=== PATIENT | female | born 1935 | race African-American/Black ===

== ENCOUNTER 2017-08-06 20:10 | Inpatient (IN) | payer MEDICARE, MEDICAID ==
[~2017-08-06] VITALS: Ht 170.2 cm; Wt 100.3 kg
[~2017-08-06 20:10] MED LIST: ACET650S25 GT; AMLO10TA80 GT; ASPI-1160 GT; BENZ1TAB7 GT; CLON0.1T GT; CRAN500T PO; DOCU50LI25 GT; FAMO20TA8 GT; FOLI-43 GT; HYDR-4135 GT; INSU100C3 SQ; IPRA3AMP9 IH; ISOS30TA6 GT; LACT10SO GT; LEVO150T8 GT; METO100T16 PO; MULT-1146 GT; OCD GT; OLAN5TAB3 GT; SERT50TA PO; TRAM50TA94 PO; ZYDS20 PO; oscal GT; renavite GT
[2017-08-06] MEDS ORDERED: IPRATROPIUM BROMIDE (0.02%) 0.5MG/2.5ML NEB HHN STA (20:20)
[2017-08-06] MEDS ORDERED: METHYLPREDNISOLONE SOD SUCC 125 MG/2 ML VIAL IV STA (20:20)
[2017-08-06] MEDS ORDERED: ALBUTEROL (0.083%) 2.5MG/3ML NEB HHN STA (20:20)
[2017-08-06] MEDS ORDERED: LEVOFLOXACIN 750MG PREMIX 150 ML IV ONE (20:30)
[2017-08-06] MEDS ORDERED: NITROGLYCERIN OINT 1GM/INCH UDPKT TD ONE (20:30)
[2017-08-06] MEDS ORDERED: ASPIRIN 81MG TABLET PO ONE (20:30)
[2017-08-06] MEDS ORDERED: METHYLPREDNISOLONE SOD SUCC 125 MG/2 ML VIAL IV SCH (20:30)
[2017-08-06] MEDS ORDERED: MAGNESIUM 2 G PREMIX 50 ML IV ONE (20:30)
[2017-08-06 20:48] LABS: BG BASE EXCESS -5.6 mmol/L (-2.0-2.0); BG BILEVEL POS AIRWAY PRESSURE 18/5; BG CARBOXYHEMOGLOBIN 0.2 % (0.5-1.5); BG DEOXYHEMOGLOBIN 0.6 % (0.0-5.0); BG FRACTION INSPIRED OXYGEN 100; BG HCO3 ACT 21.2 mmol/L (22.0-26.0); BG METHEMOGLOBIN 0.3 % (0.0-1.5); BG OXYGEN SATURATION 99.4 % (92.0-98.5); BG OXYHEMOGLOBIN 98.9 % (94.0-97.0); BG PCO2 47.7 mmHg (35.0-45.0); BG PH 7.266 (7.350-7.450); BG PO2 234.5 mmHg (75.0-100.0); BG SAMPLE SITE RIGHT RADIAL; BG TOTAL HEMOGLOBIN 9.7 g/dL (12.0-18.0); BG VENT MODE MASK - BIPAP
[2017-08-06 21:11] LABS: CHLORIDE 76 mEq/L (98-107)
[2017-08-06 21:14] LABS: HEMATOCRIT. 23.9 % (36.0-48.0); HEMOGLOBIN. 8.1 g/dL (12.0-16.0); INR 1.1; MEAN CORPUSCULAR HEMOGLOBIN 29.8 pg (28.0-32.0); MEAN PLATELET VOLUME 7.3 fl (7.4-10.4); PLATELET 327 x1000/uL (130-400); PROTHROMBIN TIME 11.7 sec (9.4-11.6); RED BLOOD CELL COUNT 2.72 mill/uL (4.2-5.4); RED CELL DISTRIBUTION WIDTH 16.9 % (11.6-14.6)
[2017-08-06 21:16] LABS: ETHANOL BLOOD < 10 mg/dL
[2017-08-06 21:49] LABS: PLATELET ESTIMATE NORMAL
[2017-08-06] MEDS ORDERED: PIPERACILLIN/TAZ 3.375G PREMIX 50 ML IV SCH ×2 (22:00→23:00)
[2017-08-06 22:02] LABS: CLARITY URINE CLEAR (CLEAR); COLOR URINE YELLOW (YELLOW); KETONES URINE NEGATIVE (NEGATIVE); LEUKOCYTE ESTERASE URINE 2+ (NEGATIVE); NITRITE URINE NEGATIVE (NEGATIVE); OCCULT BLOOD URINE TRACE (NEGATIVE); PH URINE 5.5 (4.5-8.0); PROTEIN URINE 4+ (NEGATIVE); SPECIFIC GRAVITY URINE 1.017 (1.005-1.030); UROBILINOGEN URINE 0.2 E.U./dL (0.2-1.0)
[2017-08-06 22:30] LABS: *AMPHETAMINES SCREEN URINE NEGATIVE (NEGATIVE); *BARBITURATES SCREEN URINE NEGATIVE (NEGATIVE); *BENZODIAZEPINES SCREEN URINE NEGATIVE (NEGATIVE); *COCAINE SCREEN URINE NEGATIVE (NEGATIVE); CANNABINOID URINE SCREEN NEGATIVE (NEGATIVE); METHADONE URINE SCREEN NEGATIVE (NEGATIVE); OPIATES URINE SCREEN NEGATIVE (NEGATIVE); PHENCYCLIDINE URINE SCREEN NEGATIVE (NEGATIVE)
[2017-08-06] MEDS ORDERED: SODIUM CHLORIDE 0.9% 1,000 ML IV SCH (23:00)
[2017-08-07] VITALS (12 sets, daily range): BP systolic 85–130; BP diastolic 33–53
[2017-08-07 00:33] LABS: T4 FREE 0.96 ng/dL (0.76-1.46)
[2017-08-07] MEDS ORDERED: TRAMADOL 50MG TABLET PO PRN (01:30)
[2017-08-07] MEDS ORDERED: NITROGLYCERIN 0.4MG TABLET SL SL PRN (01:30)
[2017-08-07] MEDS ORDERED: ZOLPIDEM TARTRATE 5MG TABLET PO PRN (01:31)
[2017-08-07] MEDS ORDERED: MAGNESIUM/ALUMINUM HYDROXIDE/SIMETHICONE 30ML UDC PO PRN (01:31)
[2017-08-07] MEDS ORDERED: ACETAMINOPHEN 325MG TABLET PO PRN (01:31)
[2017-08-07] MEDS ORDERED: ONDANSETRON HCL 4MG/2ML VIAL IV PRN (01:31)
[2017-08-07] MEDS ORDERED: CLONIDINE 0.1MG TABLET PO PRN (01:31)
[2017-08-07] MEDS ORDERED: IPRATROPIUM/ALBUTEROL 0.5-3(2.5)MG/3ML NEB INH PRN (01:32)
[2017-08-07] MEDS ORDERED: DOCUSATE SODIUM 100MG CAPSULE PO PRN (01:32)
[2017-08-07] MEDS ORDERED: NA PHOS,M-B/NA PHOS,DI-BA ENEMA 118ML PR PRN (01:32)
[2017-08-07] MEDS ORDERED: DIPHENHYDRAMINE 50MG/ML VIAL IV PRN (01:32)
[2017-08-07] MEDS ORDERED: GUAIFENESIN 200MG/10ML SUGAR FREE UDC PO PRN (01:33)
[2017-08-07] MEDS ORDERED: DEXTROSE 50% WATER 50ML SYRINGE IV PRN (01:36)
[2017-08-07] MEDS ORDERED: ATROPINE SULFATE 1MG/ML VIAL IV PRN (01:36)
[2017-08-07] MEDS ORDERED: VANCOMYCIN 1 G PREMIX 200 ML IV SCH (03:00)
[2017-08-07 03:20] LABS: FOLIC ACID (FOLATE) SERUM >20 ng/mL ng/mL (>5.38)
[2017-08-07] MEDS: PIPERACILLIN/TAZ 2.25G PREMIX 50 ML IV SCH ×3 (03:23→19:03)
[2017-08-07 03:33] LABS: VITAMIN B12 SERUM 1485 pg/mL (211-911)
[2017-08-07] MEDS: IPRATROPIUM/ALBUTEROL 0.5-3(2.5)MG/3ML NEB HHN SCH ×5 (04:24→21:10)
[2017-08-07] MEDS: METHYLPREDNISOLONE SOD SUCC 125 MG/2 ML VIAL IV SCH ×3 (05:35→21:51)
[2017-08-07] MEDS: BLOOD SUGAR DIAGNOSTIC STRIP TEST SCH ×4 (05:35→23:16)
[2017-08-07] MEDS: INSULIN LISPRO 100 UNITS/ML SUBCUT SCH ×4 (05:38→23:18)
[2017-08-07] MEDS ORDERED: BLOOD SUGAR DIAGNOSTIC STRIP TEST SCH (07:30)
[2017-08-07] MEDS ORDERED: INSULIN LISPRO 100 UNITS/ML SUBCUT SCH (08:00)
[2017-08-07] MEDS ORDERED: ENOXAPARIN 30MG/0.3ML SYR SUBCUT SCH ×2 (09:00)
[2017-08-07] MEDS ORDERED: ENOXAPARIN 40MG/0.4ML SYR SUBCUT SCH (09:00)
[2017-08-07] MEDS: PANTOPRAZOLE SODIUM 40 MG/VIAL IV SCH (09:40)
[2017-08-07] MEDS: ASPIRIN 325MG EC TABLET PO SCH (09:40)
[2017-08-07] MEDS ORDERED: LEVOTHYROXINE SODIUM 200MCG TABLET GT SCH (10:00)
[2017-08-07 10:19] LABS: HEMATOCRIT. 24.7 % (36.0-48.0); HEMOGLOBIN. 8.5 g/dL (12.0-16.0); MEAN CORPUSCULAR HEMOGLOBIN 30.1 pg (28.0-32.0); MEAN PLATELET VOLUME 7.5 fl (7.4-10.4); PLATELET 284 x1000/uL (130-400); RED BLOOD CELL COUNT 2.81 mill/uL (4.2-5.4); RED CELL DISTRIBUTION WIDTH 17.2 % (11.6-14.6)
[2017-08-07 10:49] LABS: PLATELET ESTIMATE NORMAL
[2017-08-07 11:09] LABS: SODIUM URINE RANDOM 30 mEq/L
[2017-08-07] MEDS ORDERED: LEVOTHYROXINE SODIUM 100 MCG/ VIAL IV NR (12:00)
[2017-08-07 14:28] LABS: BG BASE EXCESS -8.2 mmol/L (-2.0-2.0); BG CARBOXYHEMOGLOBIN 0.3 % (0.5-1.5); BG DEOXYHEMOGLOBIN 10.8 % (0.0-5.0); BG FRACTION INSPIRED OXYGEN 28; BG HCO3 ACT 17.9 mmol/L (22.0-26.0); BG METHEMOGLOBIN 0.3 % (0.0-1.5); BG OXYGEN SATURATION 89.1 % (92.0-98.5); BG OXYHEMOGLOBIN 88.6 % (94.0-97.0); BG PCO2 38.7 mmHg (35.0-45.0); BG PH 7.282 (7.350-7.450); BG PO2 55.8 mmHg (75.0-100.0); BG SAMPLE SITE RIGHT RADIAL; BG TOTAL HEMOGLOBIN 8.9 g/dL (12.0-18.0); BG VENT MODE NASAL CANNULA
[2017-08-07] MEDS ORDERED: SODIUM CHLORIDE 3% 500ML IV SOLN IV ONE (14:45)
[2017-08-07] MEDS ORDERED: SODIUM CHLORIDE 3% 500 ML IV ONE (16:00)
[2017-08-07] MEDS ORDERED: VANCOMYCIN 1 G PREMIX 200 ML IV NR (16:00)
[2017-08-07] MEDS: PIPERACILLIN/TAZ 3.375G PREMIX 50 ML IV SCH (20:16)
[2017-08-07] MEDS ORDERED: SODIUM POLYSTYRENE SULFONATE 15 G/60 ML BOT PO SCH (22:15)
[2017-08-07] MEDS ORDERED: SODIUM CHLORIDE 3% 500ML IV SOLN IV SCH (22:15)
[2017-08-08] VITALS (12 sets, daily range): BP systolic 85–140; BP diastolic 30–67
[2017-08-08] MEDS: IPRATROPIUM/ALBUTEROL 0.5-3(2.5)MG/3ML NEB HHN SCH ×5 (00:13→20:24)
[2017-08-08] MEDS: PIPERACILLIN/TAZ 3.375G PREMIX 50 ML IV SCH ×3 (03:06→20:23)
[2017-08-08] MEDS: METHYLPREDNISOLONE SOD SUCC 125 MG/2 ML VIAL IV SCH ×3 (05:30→21:01)
[2017-08-08] MEDS: INSULIN LISPRO 100 UNITS/ML SUBCUT SCH ×4 (05:36→23:03)
[2017-08-08] MEDS: BLOOD SUGAR DIAGNOSTIC STRIP TEST SCH ×4 (06:00→23:01)
[2017-08-08 06:30] LABS: HEMATOCRIT. 23.6 % (36.0-48.0); HEMOGLOBIN. 8.2 g/dL (12.0-16.0); MEAN CORPUSCULAR HEMOGLOBIN 30.7 pg (28.0-32.0); MEAN CORPUSCULAR VOLUME 88.3 fL (81.0-99.0); MEAN PLATELET VOLUME 7.8 fl (7.4-10.4); PLATELET 270 x1000/uL (130-400); RED BLOOD CELL COUNT 2.67 mill/uL (4.2-5.4)
[2017-08-08 07:06] LABS: PHOSPHORUS 4.6 mg/dL (2.5-4.9)
[2017-08-08] MEDS: PANTOPRAZOLE SODIUM 40 MG/VIAL IV SCH (08:55)
[2017-08-08] MEDS: ASPIRIN 325MG EC TABLET PO SCH (08:56)
[2017-08-08] MEDS: LEVOTHYROXINE SODIUM 200MCG TABLET GT SCH (08:56)
[2017-08-08] MEDS ORDERED: ENOXAPARIN 40MG/0.4ML SYR SUBCUT SCH (09:00)
[2017-08-08] MEDS ORDERED: SODIUM CHLORIDE 3% 500ML IV SOLN IV ONE (09:15)
[2017-08-08] MEDS ORDERED: SODIUM CHLORIDE 0.9% 1000ML BAG (SEPSIS BOLUS) IV ONE (09:30)
[2017-08-08] MEDS ORDERED: SODIUM CHLORIDE 0.9% 1,000 ML IV SCH (09:45)
[2017-08-08 09:50] LABS: PLATELET ESTIMATE NORMAL
[2017-08-08] MEDS ORDERED: SODIUM CHLORIDE 3% 500 ML IV NR (10:00)
[2017-08-08] MEDS: CITRIC ACID/SODIUM CITRATE SOLN 30ML UDC GT SCH ×3 (10:06→17:44)
[2017-08-08] MEDS: SODIUM CHLORIDE 0.9% 1,000 ML IV SCH (16:12)
[2017-08-09] VITALS: BP 90/40
[2017-08-09] MEDS: IPRATROPIUM/ALBUTEROL 0.5-3(2.5)MG/3ML NEB HHN SCH ×4 (00:42→12:28)
[2017-08-09 02:00] VITALS: BP 79/31
[2017-08-09] MEDS: SODIUM CHLORIDE 0.9% 1,000 ML IV SCH ×2 (03:44→12:41)
[2017-08-09] MEDS: PIPERACILLIN/TAZ 3.375G PREMIX 50 ML IV SCH (03:47)
[2017-08-09 04:00] VITALS: BP 82/38
[2017-08-09] MEDS: METHYLPREDNISOLONE SOD SUCC 125 MG/2 ML VIAL IV SCH (05:37)
[2017-08-09 06:00] VITALS: BP 71/23
[2017-08-09] MEDS: BLOOD SUGAR DIAGNOSTIC STRIP TEST SCH ×2 (06:00→12:08)
[2017-08-09 06:26] LABS: HEMATOCRIT. 23.8 % (36.0-48.0); HEMOGLOBIN. 7.8 g/dL (12.0-16.0); MEAN CORPUSCULAR HEMOGLOBIN 30.1 pg (28.0-32.0); MEAN CORPUSCULAR VOLUME 91.9 fL (81.0-99.0); MEAN PLATELET VOLUME 7.7 fl (7.4-10.4); PLATELET 289 x1000/uL (130-400); RED BLOOD CELL COUNT 2.59 mill/uL (4.2-5.4); RED CELL DISTRIBUTION WIDTH 17.5 % (11.6-14.6)
[2017-08-09] MEDS: INSULIN LISPRO 100 UNITS/ML SUBCUT SCH (06:30)
[2017-08-09 06:50] LABS: PHOSPHORUS 7.9 mg/dL (2.5-4.9)
[2017-08-09 08:00] VITALS: BP 74/42
[2017-08-09] MEDS: LEVOTHYROXINE SODIUM 200MCG TABLET GT SCH (08:19)
[2017-08-09] MEDS: CITRIC ACID/SODIUM CITRATE SOLN 30ML UDC GT SCH (08:19)
[2017-08-09 08:39] LABS: PLATELET ESTIMATE NORMAL
[2017-08-09] MEDS ORDERED: FAMOTIDINE 20MG TABLET PO SCH (09:00)
[2017-08-09] MEDS ORDERED: SODIUM CHLORIDE 0.9% 250 ML IV ONE (09:15)
[2017-08-09 10:00] VITALS: BP 85/40
[2017-08-09] MEDS ORDERED: VANCOMYCIN 1 G PREMIX 200 ML IV SCH (11:00)
[2017-08-09] MEDS ORDERED: SODIUM POLYSTYRENE SULFONATE 15 G/60 ML BOT GT SCH (11:45)
[2017-08-09] MEDS ORDERED: ASPIRIN 81MG TABLET GT SCH (12:00)
[2017-08-09] MEDS ORDERED: ASPIRIN 81MG TABLET PO SCH (12:00)
== END 2017-08-09 12:48 | disposition expired | DRG 871 ==
LOC: ER 20:10 → EDBEDREQ 20:32 → 5EST 21:47 → EDBEDREQTM 21:49 → EDBEDREQ 21:49 → SUPCPDRO 21:49 → EDBEDREQ 21:50 → ENRESERV 23:04
PROVIDERS: ADMIT Internal Medicine; ATTEND Internal Medicine
PROC: 5A09357 Assistance with Respiratory Ventilation, Less than 24 Consecutive Hours, Continuous Positive Airway Pressure (ICD-10-PCS; principal; 2017-08-06)
PROC: 02HV33Z Insertion of Infusion Device into Superior Vena Cava, Percutaneous Approach (ICD-10-PCS; 2017-08-07)
PROC: B548ZZA Ultrasonography of Superior Vena Cava, Guidance (ICD-10-PCS; 2017-08-07)
DX: A41.9 Sepsis, unspecified organism (principal); J96.02 Acute respiratory failure with hypercapnia; E43 Unspecified severe protein-calorie malnutrition; N17.0 Acute kidney failure with tubular necrosis; G92 Toxic encephalopathy; J18.9 Pneumonia, unspecified organism; K85.90 Acute pancreatitis without necrosis or infection, unspecified; Z99.11 Dependence on respirator [ventilator] status; L89.313 Pressure ulcer of right buttock, stage 3; E87.2 Acidosis; J44.1 Chronic obstructive pulmonary disease with (acute) exacerbation; E87.1 Hypo-osmolality and hyponatremia; N39.0 Urinary tract infection, site not specified; J44.0 Chronic obstructive pulmonary disease with (acute) lower respiratory infection; Z66 Do not resuscitate; E11.22 Type 2 diabetes mellitus with diabetic chronic kidney disease; F03.90 Unspecified dementia, unspecified severity, without behavioral disturbance, psychotic disturbance, mood disturbance, and anxiety; E03.9 Hypothyroidism, unspecified; N18.3 Chronic kidney disease, stage 3 (moderate); B96.89 Other specified bacterial agents as the cause of diseases classified elsewhere; E66.01 Morbid (severe) obesity due to excess calories; I12.9 Hypertensive chronic kidney disease with stage 1 through stage 4 chronic kidney disease, or unspecified chronic kidney disease; D64.9 Anemia, unspecified; E87.5 Hyperkalemia; Z82.49 Family history of ischemic heart disease and other diseases of the circulatory system; Z83.3 Family history of diabetes mellitus; Z86.73 Personal history of transient ischemic attack (TIA), and cerebral infarction without residual deficits; Z93.1 Gastrostomy status; Z88.5 Allergy status to narcotic agent; Z88.8 Allergy status to other drugs, medicaments and biological substances; Z79.82 Long term (current) use of aspirin; Z79.899 Other long term (current) drug therapy; Z90.49 Acquired absence of other specified parts of digestive tract; Z68.34 Body mass index [BMI] 34.0-34.9, adult
CPT/HCPCS: 36415; 36569; 36600; 51702; 71045; 76770; 76937; 80048; 80053; 80202; 80305; 81003; 82375; 82533; 82607; 82746; 82805; 82962; 83036; 83605; 83690; 83735; 83880; 83935; 84100; 84300; 84439; 84443; 84478; 84484; 85025; 85610; 87040; 87077; 87086; 87186; 93005; 93306; 93970; 94640; 94660; 96365; 96367; 96375; 99285; C1725; C9113; G0482; J0461; J1650; J1815; J1956; J2543; J2930; J3370; J3475; J3490; J7030; J7040; J7050; J7611; J7620; A4315